=== PATIENT | male | born 1960 | race Caucasian/White ===

== ENCOUNTER 2022-02-08 11:46 | Emergency (ER) | payer OTHER, SELFPAY ==
[2022-02-08 11:48] VITALS: BP 142/84; PULSE 78; RESP 16; TEMP 36.6; O2SAT 98; BMI 21.2
--- NOTE | 2022-02-08 12:08 | EX.ED.DYSGE1 ---
HPI History of Present Illness Chief Complaint: Lower Extremity Injury Informant: patient Narrative Narrative: Patient presents from radiology department secondary to positive DVT study. Patient broke his foot 3 weeks ago while running in the [employer]. He is following with Dr. Noriega. He is nonweightbearing for 6 weeks. Patient states that he was seen yesterday for 3-week follow-up. He mentioned that he had some tightness in his calf. When it is not improved today a DVT study was ordered. This is positive for a clot in the left soleus vein. Patient is still nonweightbearing for the next 3 weeks. Patient denies chest pain or shortness of breath. No prior history of clots. [facility] Medical History High cholesterol Hypertension Home Medications amlodipine 02/08/22 [History Last Taken Unknown] apixaban [Eliquis DVT-PE Treat 30D Start] 5 mg PO BID #74 tab 02/08/22 [Rx Last Taken Unknown] atorvastatin 02/08/22 [History Last Taken Unknown] montelukast mg 02/08/22 [History Last Taken Unknown] Allergy/AdvReac Type Severity Reaction Status Date / Time No Known Allergies Allergy Verified 02/08/22 11:49 Social History Smoking Status: Never smoker ROS ROS ED Constitutional Constitutional ED: Denies chills or fever(s) Eyes Eyes: Denies change in vision ENT ENT ED: Denies sore throat Cardiovascular Cardiovascular: Denies chest pain Respiratory/Chest Respiratory/Chest: Denies cough or dyspnea Gastrointestinal Gastrointestinal: Denies abdominal pain, nausea or vomiting Genitourinary Genitourinary ED: Denies dysuria Musculoskeletal Musculoskeletal: Reports arthralgias; Denies back pain or neck pain Integumentary Denies rash Neurologic Neurologic: Denies headache(s), paresthesias or weakness Allergic/Immunologic Allergic/Immunologic ED: Denies urticaria EXAM Physical Exam Const Vital Signs: 02/08/22 11:48 Temperature 98 F Temperature Source Temporal Pulse Rate 78 Respiratory Rate 16 Blood Pressure 142/84 H Blood Pressure Mean 103 Pulse Ox 98 Oxygen Delivery Method Room Air Positive well nourished and well developed General Appearance ED: well developed HEENT Reports moist mucous membranes Eyes PERRL and EOMs intact bilaterally Neck supple Chest Wall inspection of chest normal and palpation of chest normal Resp normal respiratory effort and clear to auscultation bilaterally Cardio regular rate and regular rhythm GI non-tender Palpation: soft Extremity Extremity Narrative: Left lower extremity in walking boot. Patient able to wiggle toes without difficulty. Good sensation distally. Neuro oriented x3 Sensorium / Orientation: alert Psych mental status grossly normal MDM MDM MDM Narrative Medical decision making narrative: DVT study is reviewed and is significant for an acute deep vein thrombosis in the left soleus vein. Treatment and Re-Evaluation Narrative: Patient be given a coupon for 30 days of Eliquis. I did speak with the patient's primary care physician, Dr. Aquino. Patient is to follow-up in the office for continuation of this medication. Discharge Plan Triage Chief Complaint: Lower Extremity Injury ED Provider: Tete Stevens Dx/Rx/DC Orders Clinical Impression: DVT (deep venous thrombosis) Instructions: ED Deep Vein Thrombosis (DVT) Prescriptions: New Eliquis DVT-PE Treat 30D Start 5 mg (74 tabs) tablets,dose pack 5 mg PO BID Qty: 74 RF: 0 No Action atorvastatin 20 mg tablet RF: 0 amlodipine 5 mg tablet RF: 0 montelukast 10 mg tablet RF: 0 Primary Care Provider: Chucky Aquino Referrals: Chucky Aquino MD [Primary Care Provider] - 1-2 Weeks Disposition Disposition: Home, Self Care
[2022-02-08] MEDS: APIXABAN 5 MG TABLET 10 MG PO (12:23)
== END 2022-02-08 12:31 | disposition home or self-care (01) ==
LOC: ED 12:21
PROVIDERS: Emergency Provider Emergency Medicine; PCP Family Medicine; Visit Provider Emergency Medicine
DX: I82.462 Acute embolism and thrombosis of left calf muscular vein (principal); I10 Essential (primary) hypertension; E78.00 Pure hypercholesterolemia, unspecified; Z79.899 Other long term (current) drug therapy; Z79.01 Long term (current) use of anticoagulants
CPT/HCPCS: 99283

== ENCOUNTER → 2022-02-08 | Outpatient (CLI) | payer OTHER, SELFPAY ==
--- NOTE | 2022-02-08 11:11 | VDLE_ITS ---
Reason For Study: Edema RIGHT LEFT GSV is normal. GSV is normal. CFV is compressible, spontaneous, phasic, CFV is compressible, spontaneous, phasic, competent and demonstrates normal competent, and demonstrates normal augmentation. augmentation. FV is compressible, spontaneous, phasic, FV is compressible, spontaneous, phasic, competent and demonstrates normal competent and demonstrates normal augmentation. augmentation. POP V is compressible, spontaneous, phasic, POP V is compressible, spontaneous, phasic, competent and demonstrates normal competent and demonstrates normal augmentation. augmentation. T/P Trunk is compressible. T/P Trunk is compressible. PTV is compressible. PTV is compressible. RT PerV is compressible. LT PerV is compressible. Procedure Acute deep vein thrombosis is noted in the This is a venous duplex using B-mode, color left SoleusV. flow and spectral Doppler. Exam performed in department. A preliminary report was called and/or faxed to Porsha. Patient taken to ED per Porsha at Leann's office for treatment. VL/Venous Duplex US - Farhad Extrem Interpretation Summary There is no evidence of right lower extremity deep vein thrombosis. Acute deep venous thrombosis left soleus vein Patent and compressible bilateral great saphenous veins Ordering Physician: Tez Noriega Referring Physician: Chucky Aquino Performed By: Naomi Avitia RVT
== END | disposition home or self-care (01) ==
LOC: CVS 11:09
PROVIDERS: PCP Family Medicine; Referring Provider Podiatrist; Visit Provider Podiatrist
DX: R60.0 Localized edema (principal); I82.409 Acute embolism and thrombosis of unspecified deep veins of unspecified lower extremity
CPT/HCPCS: 93970

== ENCOUNTER → 2022-02-26 | Outpatient (CLI) | payer OTHER, SELFPAY ==
--- NOTE | 2022-02-26 12:56 | VDLE_ITS ---
Reason For Study: Pain, swelling Procedure LEFT This is a venous duplex using B-mode, color GSV is normal. flow and spectral Doppler. CFV is compressible, spontaneous, phasic, Exam performed in department. competent, and demonstrates normal A preliminary report was called and/or faxed augmentation. to Leann. FV is compressible, spontaneous, phasic, competent and demonstrates normal augmentation. POP V is compressible, spontaneous, phasic, competent and demonstrates normal augmentation. T/P Trunk is compressible. PTV is compressible. LT PerV is compressible. Soleus vein is partially compressible with minimal flow noted, as compared to 02/08/2022. VL/Venous Duplex US, Unilateral Interpretation Summary Thrombus is visualized in the left soleus vein with minimal flow and partial co mpressibility consistent with deep venous thrombosis. Please refer to the previous examinatio n of February 08, 2022 There is no evidence for proximal progression. Patent and compressible left great saphenous vein Ordering Physician: Tez Noriega Referring Physician: MD Chucky Salmon Performed By: Naomi Avitia RVT
== END | disposition home or self-care (01) ==
LOC: CVS 12:53
PROVIDERS: PCP Family Medicine; Referring Provider Podiatrist; Visit Provider Podiatrist
DX: I82.402 Acute embolism and thrombosis of unspecified deep veins of left lower extremity (principal); M79.89 Other specified soft tissue disorders
CPT/HCPCS: 93971

== ENCOUNTER → 2022-05-09 | Outpatient (CLI) | payer OTHER, SELFPAY ==
--- NOTE | 2022-05-09 10:59 | VDLE_ITS ---
Reason For Study: DVT Procedure LEFT This is a venous duplex using B-mode, color GSV is normal. flow and spectral Doppler. CFV is compressible, spontaneous, phasic, Exam performed in department. competent, and demonstrates normal A preliminary report was called and/or faxed augmentation. to Leann. FV is compressible, spontaneous, phasic, competent and demonstrates normal augmentation. POP V is compressible, spontaneous, phasic, competent and demonstrates normal augmentation. T/P Trunk is compressible. PTV is compressible. LT PerV is compressible. Soleus V is partially compressible with minimal wall thickening noted. Compared to 02/26/22. VL/Venous Duplex US, Unilateral Interpretation Summary Chronic deep venous thrombosis left soleus vein. No evidence for more proximal deep venous thrombosis Patent and compressible left great saphenous vein Improvement noted from the previous examination of February 26, 2022 Ordering Physician: Tez Noriega Referring Physician: Chucky Aquino Performed By: Naomi Avitia RVT
== END | disposition home or self-care (01) ==
LOC: CVS 10:57
PROVIDERS: PCP Family Medicine; Referring Provider Podiatrist; Visit Provider Podiatrist
DX: I82.462 Acute embolism and thrombosis of left calf muscular vein (principal)
CPT/HCPCS: 93971

== ENCOUNTER → 2022-06-20 | Outpatient (CLI) | payer OTHER, SELFPAY ==
--- NOTE | 2022-06-20 13:02 | VDLE_ITS ---
Reason For Study: DVT RIGHT LEFT GSV is normal. GSV is normal. CFV is compressible, spontaneous, phasic, CFV is compressible, spontaneous, phasic, competent and demonstrates normal competent, and demonstrates normal augmentation. augmentation. FV is compressible, spontaneous, phasic, FV is compressible, spontaneous, phasic, competent and demonstrates normal competent and demonstrates normal augmentation. augmentation. POP V is compressible, spontaneous, phasic, POP V is compressible, spontaneous, phasic, competent and demonstrates normal competent and demonstrates normal augmentation. augmentation. T/P Trunk is compressible. T/P Trunk is compressible. PTV is compressible. PTV is compressible. RT PerV is compressible. LT PerV is compressible. Procedure Soleus V is now completely compressible. This is a venous duplex using B-mode, color flow and spectral Doppler. Exam performed in department. The exam was diagnostic. A preliminary report was called and/or faxed to Dr. Noriega. VL/Venous Duplex US - Farhad Extrem Interpretation Summary No evidence for acute deep venous thrombosis bilateral lower extremities with p atent and compressible bilateral great saphenous veins. Left soleus vein flow has resumed to normal Ordering Physician: Tez Noriega Performed By: Wing Sun RVT
== END | disposition home or self-care (01) ==
LOC: CVS 13:01
PROVIDERS: PCP Family Medicine; Referring Provider Podiatrist; Visit Provider Podiatrist
DX: I82.409 Acute embolism and thrombosis of unspecified deep veins of unspecified lower extremity (principal)
CPT/HCPCS: 93970

== ENCOUNTER → 2024-02-03 | Outpatient (CLI) | payer OTHER, SELFPAY ==
[2024-02-05 12:10] LABS: PSA, Free % 7.8 % (.)
== END | disposition home or self-care (01) ==
LOC: LAB 15:48
PROVIDERS: PCP Family Medicine; Referring Provider Nurse Practitioner; Visit Provider Nurse Practitioner
DX: R97.20 Elevated prostate specific antigen [PSA] (principal)
CPT/HCPCS: 36415; 84153; 84154

== ENCOUNTER → 2024-02-13 | Outpatient (CLI) | payer OTHER, SELFPAY ==
--- NOTE | 2024-02-13 13:28 | MRI_ITS ---
STUDY: MR PROSTATE GLAND/ PELVIS WITH T WITHOUT CONTRAST REASON FOR EXAM: Male, 64 years old. ELEVATED PSA TECHNIQUE: Standardized fat and water weighted pulse sequences were obtained in all 3 orthogonal planes, pre-and post contrast administration. IV 15 cc clarisacn was administered for the contrast portion of the examination. COMPARISON: None. FINDINGS: Prostate gland volume/size: Mildly to moderately enlarged measuring 6.09 x 5.3 x 5.06 cm Anterior fibromuscular stroma: Normal Peripheral zone: 1.42 cm low signal enhancing irregular nodule in the medial aspect of the right peripheral zone which also demonstrates bright diffusion weighted and dark ADC map signal which is indicative of a malignant neoplasm. Normal remaining aspects of the right peripheral zone. Ovoid 1.66 cm low signal enhancing nodule in the superior and medial aspect of the left peripheral zone also demonstrates abnormal diffusion weighted signal and characteristics of a malignant neoplasm. Central zone: Diffusely heterogeneous and nodular most likely due to prostatic hyperplasia Transitional zone: Diffusely heterogeneous and nodular most likely due to prostatic hyperplasia. Focus of nodular hyperplasia project in the posterior superior aspect of the transitional zone in the midline herniated into the base of the bladder. Prostate capsule: Intact Seminal vesicles: Normal Pelvic sidewall lymphadenopathy: None demonstrated Bony structures: No marrow edema or lytic or blastic lesions or abnormal enhancement of the bony structures demonstrated on the current study. Normal urinary bladder. Normal visualized small intestine. There are multiple colonic diverticula of the sigmoid colon consistent with chronic diverticulosis. There is no pelvic fluid. There is no pelvic mass lesion or lymphadenopathy. Normal visualized pelvic arteries. Normal osseous structures. Normal abdominal wall. MRI/Pelvis W/WO Contrast IMPRESSION: 1. Peripheral zone: 1.42 cm low signal enhancing irregular nodule in the medial aspect of the right peripheral zone which also demonstrates bright diffusion weighted and dark ADC map signal which is indicative of a malignant neoplasm. Normal remaining aspects of the right peripheral zone. Ovoid 1.66 cm low signal enhancing nodule in the superior and medial aspect of the left peripheral zone also demonstrates abnormal diffusion weighted signal and characteristics of a malignant neoplasm. 2. PI-RADS 4: high (clinically significant cancer is likely to be present) Reference information: Normal prostate tissue Benign prostatic hypertrophy cancer/tumor - low signal peripheral , transitional, and central zones malignancy appears as bright on DWI and low signal on ADC map Prostate imaging-reporting and data system (PI-RADS) PI-RADS 1: very low (clinically significant cancer is highly unlikely to be present) PI-RADS 2: low (clinically significant cancer is unlikely to be present) PI-RADS 3: intermediate (the presence of clinically significant cancer is equivocal) PI-RADS 4: high (clinically significant cancer is likely to be present) PI-RADS 5: very high (clinically significant cancer is highly likely to be present) PI-RADS X: component of exam technically inadequate or not performed Prostate malignancy distribution: Peripheral zone: 70-80% Transitional zone: 10-20% Central zone: 5% or less Electronically Signed: Leobardo Mccoy MD at 8:57 EDT ,
[2024-02-13 14:19] LABS: CREATININE FINGERSTICK < 1.0 mg/dL (0.70-1.30); EGFR FINGERSTICK > 60.0000 mL/min (>60)
== END | disposition home or self-care (01) ==
LOC: MRI 13:23
PROVIDERS: PCP Family Medicine; Referring Provider Urology; Visit Provider Urology
DX: R97.20 Elevated prostate specific antigen [PSA] (principal)
CPT/HCPCS: 72197; A9575

== ENCOUNTER 2024-03-17 09:26 | Day surgery (SDC) | payer OTHER, SELFPAY ==
[2024-03-17] VITALS (9 sets, daily range): BP systolic 114–124; BP diastolic 69–86; PULSE 56–65; RESP 16; TEMP 36.6–36.9; O2SAT 97–100; BMI 21.7
--- NOTE | 2024-03-17 | IMM_PTH ---
PATIENT: HAL MOORE LOC: [facility] [place] U#:[id number] AGE/SX: 64/M ROOM: RE03/17/[address]: Dr. Vishnu Monae MD : 1960 BED: DIS: 03/17/2024 SPEC #: [id number] RECD: 03/18/24 11:58 STATUS: SOUJolene REQ #: [id number] ADRI: 03/17/24 00:[address]: Vishnu Monae DEPT: IMMUNOHISTOCHEMISTRY RECD BY: Hilton Rubalcava ENTERED: 03/18/24 11:58 SP TYPE: IMMUNO OTHR DR: Dr. Chucky Aquino MD Tissues: B - PROSTATE LEFT Procedures: 34BE12 (add) P40 (initial) PHYSICIAN & INSTITUTION [place] [id number] SPECIMEN INFORMATION: Tissue Source: B- Prostate left mid Clinical Info: Elevated PSA Specimen Number: [id number] CPT code: 96077,01272 METHODOLOGY: Deparaffinized sections of prefer/formalin-fixed tissue or PAP/DQ stained slides are incubated with monoclonal/polyclonal antibodies/oligonucleotide probes. Localization is made via biotin free immunoperoxidase method. Appropriate controls are performed and reacted as expected. Results on target cell population are indicated in the following table: RESULTS: ANTIBODY / CLONE RESULT Block B P40 (BC28) positive 34BE12 (34BE12) positive These tests were developed and their performance characteristics determined by [facility]. They may not have been cleared or approved by the U.S. Food and Drug Administration. The FDA has determined that such clearance or approval is not necessary. The above immunohistochemical/dualISH markers are ordered and reviewed by the Pathologist. INTERPRETATION: B. Prostate, left mid, biopsy: No evidence of malignancy. AM/ 03/19/2024
[2024-03-17] MEDS: Lactated Ringers 1,000 ML 15 ML IV (10:17)
--- NOTE | 2024-03-17 11:00 | US_ITS ---
STUDY: ULTRASOUND-GUIDED PROSTATE BIOPSY. REASON FOR EXAM: Male, 64 years old. Elevated PSA. TECHNIQUE: Under direct sonographic guidance, the urologist performed multiple core biopsies of the prostate utilizing an 18-gauge core biopsy needle. COMPARISON: None. US/Prostate Biopsy IMPRESSION: Ultrasound-guided prostate biopsy. Electronically Signed: Madan Lewis MD at 8:10 EDT ,
--- NOTE | 2024-03-17 11:15 | PCM.PRE.AN2 ---
ASA Classification* ASA Classification ASA Classification: 2 Assessment & Plan Anesthesia* Anesthesia Assessment Anesthesia Assessment: Discussed sedation and/or anesthesia options, risks, benefits, and alternatives with patient/parents/legal guardian/POA. Questions invited. The patient/parents/legal guardian/POA seems to understand and agrees to proceed with anesthesia plan. Reviewed the physical assessment, medical history, allergy history and patient home medications list prior to surgery/procedure/anesthetic and documented any changes. Performed airway and anesthesia risk assessments. Anesthesia Type Anesthesia Type: MAC (General as back up) History Source History Obtained from:: Patient and Chart Pre-Assessment Diagnosis/Proposed Procedure Planned Operative Procedure(s): Cysto,Transurethera Prostate,Bx US Guided Anesthesia History Anesthesia History - client application support specialist: Anesthesia History - client application support specialist Hx Hospitalization No 03/03/24 13:23 Any Problems With Anesthesia No 03/03/24 13:23 Cholinesterase deficiency No 03/03/24 13:23 You/Your Family Experience No 03/03/24 13:23 fever (hyperthermia) with Relationship Recent Exposure to Contagious No 03/17/24 09:55 Disease Does patient have nerve No 03/03/24 13:23 stimulator Patient instructed to have device shut off --Does patient have Pacemaker No 03/17/24 09:55 or ICD? When Was Last Pacemaker Check QUESTION #4 FULL TEXT: You/Your Family Experience fever (hyperthermia) with Anesthesia Last Oral Intake Last Oral intake: Last Oral Intake NPO since 00:00 03/17/24 09:55 Meds taken in AM with sips of Yes 03/17/24 09:55 water? Meds patient instructed to take am of surgery PONV PONV - client application support specialist: PONV - client application support specialist Female No 03/03/24 13:23 HX of Motion Sickness No 03/03/24 13:23 HX of N/V After Surgery No 03/03/24 13:23 Non-Smoker Yes 03/03/24 13:23 Duration of Surgery greater Yes 03/03/24 13:23 than 60 minutes Number of Risk Factors 2 03/03/24 13:23 PONV Score Moderate Risk 03/03/24 13:23 Height & Weight Height & Weight: Anesthesia: Height & Weight Height 6 ft 2 in 03/17/24 09:55 Weight: 77 kg 03/17/24 09:55 Body Mass Index (BMI) 21.7 03/17/24 09:55 Respiratory Assessment Respiratory Assessment - client application support specialist: Respiratory Tract Infection Hx - client application support specialist Hx Respiratory Tract Infection Yes: RECENT COLD FINISHED 03/03/24 13:23 ANTIBIOTICS 03/02/24 STOP Sleep Apnea STOP Sleep Apnea - client application support specialist: STOP Sleep Apnea - client application support specialist Hx Hypertension Yes: CONTROLLED ON MED 03/03/24 13:23 Hx Sleep Apnea No 03/03/24 13:23 CPAP BIPAP Do you snore loudly (louder No 03/03/24 13:23 than talking or can be heard Do you often feel tired/ No 03/03/24 13:23 fatigued/ sleepy during daytime? Has anyone observed you stop No 03/03/24 13:23 breathing during sleep? STOP Results Negative 03/03/24 13:23 QUESTION #5 FULL TEXT : Do you snore loudly (louder than talking or can be heard through closed doors)? Tobacco Use History Tobacco Use History - client application support specialist: Tobacco Use History - client application support specialist Tobacco Use Smoking Status Never smoker 03/03/24 13:23 Hx Tobacco Use No 03/03/24 13:23 Years Smoking Packs Smoked per Day Smoking Cessation Date was within the last 15 years Hx Smoking Cessation Date Hx Smoking Cessation Counseling Hematologic Medial History Hematologic Hx - client application support specialist: Hematologic Medical Hx - nurse charge rn Hx of Blood Transfusion No 03/03/24 13:23 Hx of Transfusion in last 3 No 03/03/24 13:23 Months Date of Last Transfusion (if within last 3 months) Ever experience any problems No 03/03/24 13:23 with transfusion(s)? Specify any problems Hx of Preganancy in last 3 N/A 03/03/24 13:23 Months Nurse Filling Out Transfusion VCHRISTIN 03/03/24 13:23 & Questions: Date: 03/03/24 03/03/24 13:23 Time: 13:25 03/03/24 13:23 Patient unable to answer at this time (ie. confused, unrespo /Reproduction History /Reproductive History - client application support specialist: /Reproductive Hx- client application support specialist Hx Now Gestational Age (in weeks): EDC: Hx Hx Para Hx Section SAB Active Medications Active Medications: Current Medications Generic Name Dose Route Start Last Admin Trade Name Freq PRN Reason Stop Dose Admin Cefazolin Sodium 2 gm/ Sodium 110 mls @ 150 mls/hr 03/17/24 11:30 Chloride IV 03/17/24 12:13 PREOP ONE Lactated Ringer's 1,000 mls @ 15 mls/hr 03/17/24 10:15 03/17/24 10:17 IV 15 mls/hr .Q48H JUN Administration Anesthesia Focused Assessment* Temperature: 97.9 F Pulse Rate: 60 Blood Pressure: 114/81 Respiratory Rate: 16 Pulse Ox: 99 Airway Assessment Mouth opens: >3 cm Mallampati Score: II Teeth Condition: Caps/Crowns (Crowns are all tight.) Neck Range of motion (ROM): Full ROM Pertinent Findings Stress Test Pertinent Findings:: Stress test performed September 08, 2020 was negative for ischemia. ejection fraction is 58% Focused Labs Anesthesia Preop lab: CBC CHEMISTRY COAG Review of Systems (Anesthesia) ROS Narrative System reviewed and no additional complaints, except as documented. [facility] Medical History Wears glasses Thyroid disease DVT (deep venous thrombosis) History of echocardiogram History of stress test High cholesterol Hypertension Home Medications ?Medication ?Instructions ?Recorded ?Last Taken ?Type amlodipine 5 mg tablet 5 mg PO QHS 02/08/22 03/16/24 23:00 History atorvastatin 20 mg tablet 20 mg PO QHS 02/08/22 03/16/24 23:00 History montelukast 10 mg tablet 10 mg PO DAILY 02/08/22 Unknown History levothyroxine 75 mcg tablet 75 mcg PO DAILY 03/03/24 03/17/24 08:30 History tadalafil 2.5 mg tablet 2.5 mg PO QHS 03/03/24 03/16/24 23:00 History hydroxyzine HCl 50 mg tablet 50 mg PO Q6H PRN PRN anxiety 03/17/24 03/16/24 23:00 History Allergy/AdvReac Type Severity Reaction Status Date / Time No Known Allergies Allergy Verified 03/17/24 09:53 Surgical History Hx laparoscopic cholecystectomy Social History Smoking Status: Never smoker
--- NOTE | 2024-03-17 11:27 | PCM.HP.STD ---
HPI - General General Date of Service: 03/17/24 Chief Complaint: Elevated PSA HPI Narrative HAL MOORE, is a 64 M who presents ultrasound-guided prostate biopsy [facility] Medical History Wears glasses Thyroid disease DVT (deep venous thrombosis) History of echocardiogram History of stress test High cholesterol Hypertension Home Medications ?Medication ?Instructions ?Recorded ?Last Taken ?Type amlodipine 5 mg tablet 5 mg PO QHS 02/08/22 03/16/24 23:00 History atorvastatin 20 mg tablet 20 mg PO QHS 02/08/22 03/16/24 23:00 History montelukast 10 mg tablet 10 mg PO DAILY 02/08/22 Unknown History levothyroxine 75 mcg tablet 75 mcg PO DAILY 03/03/24 03/17/24 08:30 History tadalafil 2.5 mg tablet 2.5 mg PO QHS 03/03/24 03/16/24 23:00 History hydroxyzine HCl 50 mg tablet 50 mg PO Q6H PRN PRN anxiety 03/17/24 03/16/24 23:00 History Allergy/AdvReac Type Severity Reaction Status Date / Time No Known Allergies Allergy Verified 03/17/24 09:53 Surgical History Hx laparoscopic cholecystectomy Social History Smoking Status: Never smoker Vital Signs Vital Signs Vital Signs: 03/17/24 09:55 03/17/24 09:55 Temperature 97.9 F Temperature Source Temporal Pulse Rate 60 Respiratory Rate 16 Respiratory Pattern Normal Blood Pressure 114/81 H Blood Pressure Mean 92 Blood Pressure Source Monitor Blood Pressure Position Semi-Fowlers Blood Pressure Location Left Arm Pulse Ox 99 Oxygen Delivery Method Room Air Weight Weight: 77 kg Body Mass Index (BMI) 21.7
--- NOTE | 2024-03-17 11:30 | PROSBIL_PTH ---
PATIENT: HAL MO[place] [facility] [id number] AGE/SX: 64/M ROOM: RE03/17/[address]: Dr. Vishnu Monae MD : 1960 BED: DIS: 03/17/2024 SPEC #: [id number] RECD: 03/17/24 12:59 STATUS: QUINTEN REYusef #: [id number] ADRI: 03/17/24 11:[address]: Vishnu Monae DEPT: SURGICAL PATHOLOGY RECD BY: Seth Bunch ENTERED: 03/17/24 13:52 SP TYPE: PROST BX LAUREEN DR: Dr. Chucky Aquino MD Tissues: A - PROSTATE RIGHT B - PROSTATE RIGHT C - PROSTATE RIGHT D - PROSTATE LEFT E - PROSTATE LEFT F - PROSTATE LEFT Procedures: PROSTATE BX HEADER OPERATION: Transurethral resection prostate biopsy, US guided PRE-OP DIAGNOSIS: Elevated PSA TISSUE SUBMITTED: A- Left base, B- Left mid, C- Left apex, D- Right base. E- Right mid, F- Right apex MICROSCOPIC DIAGNOSIS A. Left prostate, base, core biopsy: Focal glandular atrophy. B. Left prostate, mid, core biopsy: Chronic prostatitis. Focal glandular hyperplasia and benign focal basal cell hyperplasia. See comment. C. Left prostate, apex, core biopsy: Focal glandular atrophy. D. Right prostate, base, core biopsy: Focal chronic inflammation. E. Right prostate, mid, core biopsy: Mild chronic inflammation. F. Right prostate, apex, core biopsy: Minimal chronic inflammation. AM/ 03/18/2024 COMMENT B. Immunohistochemistry ([id number]) supports the above diagnosis. MICROSCOPIC DESCRIPTION Slides are reviewed. GROSS DESCRIPTION A - Received is one container designated prostate, left base. The specimen consists of two elongated fragments of light alcaraz-white soft tissue each measuring 1.5 cm in length and 0.1 cm in diameter. The specimen is totally submitted in one cassette. B - Received is one container designated prostate, left mid. The specimen consists of five elongated fragments of light alcaraz-white soft tissue each measuring 1.5 cm in length and 0.1 cm in diameter. The specimen is totally submitted in one cassette. C - Received is one container designated prostate, left apex. The specimen consists of two elongated fragments of light alcaraz-white soft tissue each measuring 1.5 cm in length and 0.1 cm in diameter. The specimen is totally submitted in one cassette. D - Received is one container designated prostate, right base. The specimen consists of two elongated fragments of light alcaraz-white soft tissue each measuring 1.5 cm in length and 0.1 cm in diameter. The specimen is totally submitted in one cassette. E - Received is one container designated prostate, right mid. The specimen consists of two elongated fragments of light alcaraz-white soft tissue each measuring 1.5 cm in length and 0.1 cm in diameter. The specimen is totally submitted in one cassette. F - Received is one container designated prostate, right apex. The specimen consists of two elongated fragments of light alcaraz-white soft tissue each measuring 1.5 cm in length and 0.1 cm in diameter. The specimen is totally submitted in one cassette. Anoop 03/17/2024 TC:3 CPT: 53521 x6
[2024-03-17] MEDS: Cefazolin 2 GM in 0.9% Normal Saline (100mL Bag) 100 ML IV (11:49)
--- NOTE | 2024-03-17 12:11 | PCM.DC ---
Discharge Instructions Diet Discharge Diet: No restrictions Activity Discharge Activity: Return to Normal Activity and May Not Drive (while taking narcotic pain medications.) Dressing / Incision Call your doctor if you observe: Fever of 101 or Higher Follow Up Care Please Follow Up With: Vishnu Monae MD When: Call [phone] for an appointment Test Results: Test results from this visit will be discussed in further detail at your follow-up appointment, if applicable. Discharge Plan Admission Primary Reason for Your Visit: prostate biopsy Attending Provider: Vishnu Monae Primary Care Provider: Chucky Aquino Instructions Print Language: [place] Discharge Orders/Prescriptions Prescriptions: Continued atorvastatin 20 mg tablet 20 mg PO QHS Patient Comments: TAKE 1 TABLET BY MOUTH ONCE DAILY IN THE EVENING amlodipine 5 mg tablet 5 mg PO QHS Patient Comments: TAKE 1 TABLET BY MOUTH ONCE DAILY montelukast 10 mg tablet 10 mg PO DAILY Patient Comments: TAKE 1 TABLET BY MOUTH ONCE DAILY levothyroxine 75 mcg tablet 75 mcg PO DAILY tadalafil 2.5 mg tablet 2.5 mg PO QHS hydroxyzine HCl 50 mg tablet 50 mg PO Q6H PRN PRN (Reason: anxiety) Referrals / Follow Up: Vishnu Monae MD [Med Staff - Active Staff] - Chucky Aquino MD [Primary Care Provider] - Disposition Disposition (needs filled in before D/C Order can be placed): Home, Self Care
--- NOTE | 2024-03-17 12:11 | PCM.OPRPT ---
Report of Operation Date of Procedure: 03/17/24 Pre-Operative Diagnosis: Elevated PSA Post-Operative Diagnosis: Same Surgery/Procedure Performed:: Transrectal, ultrasound-guided biopsy of the prostate Description of Surgical Findings:: Patient was taken back to the operating room at this with induction of general anesthesia he was placed in dorsolithotomy position with the legs in stirrups. The he underwent MAC local sedation we then used a transrectal ultrasound and went into the rectum I did ultrasonography of the prostate prostate was measured about 60 g in size identified that the right peripheral zone was larger than the left peripheral zone no clear hypoechoic lesions seen he did have an MRI report was read as have abnormal lesions on both the left and right peripheral zones so that we did sequential biopsies of the right side in the peripheral zone started the right peripheral zone base right peripheral zone mid and right peripheral zone apex multiple biopsies were taken any lesion seen were biopsied. We then went to the left side and we did a left peripheral zone base of the peripheral zone mid in the peripheral zone apex biopsies were taken. After all the cores were placed on the appropriate cuff to locate the the anatomy and the location of biopsy then patient anesthetic was reversed perineal and rectal pressure was placed. Patient is taken back to the PACU in stable condition Surgeon: Vishnu Monae Type of Anesthesia: MAC and Topical Anesth Drains: none Admit VTE Documentation VTE Present on Admission: No VTE Mechan Device Prophylaxis: SCD's VTE Pharm Prophylaxis ordered?: No
--- NOTE | 2024-03-17 12:22 | PCM.POST.ANE ---
Anesthesia: Postop Eval I Current Vital Signs Temperature: 98 F Pulse Rate: 65 Blood Pressure: 120/82 Respiratory Rate: 16 Pulse Ox: 97 Oxygen Delivery Method: Room Air Assessment Airway patent: Yes Spontaneous unlabored respirations: Yes Mental status: Awake and Calm nausea: No Vomiting: No Anesthesia Complication: No Fluid Hydration Crystalloid volume administer (ml): 200 Total IV fluid infused: 200 Progress Note Anesthesia document: Postop Eval 1 completed: Yes
--- NOTE | 2024-03-17 14:38 | POSTOPAN2_ITS ---
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 Spontaneous unlabored Yes 03/17/24 12:55 JAVA ENTERPRISE ARCHITECT.[email or web address] respirations Mental status Awake,Calm 03/17/24 12:55 JAVA ENTERPRISE ARCHITECT.[email or web address] nausea No 03/17/24 12:55 JAVA ENTERPRISE ARCHITECT.[email or web address] Vomiting No 03/17/24 12:55 JAVA ENTERPRISE ARCHITECT.[email or web address] Anesthesia Postop Eval I: Fluid Summary Crystalloid volume administer 200 03/17/24 12:55 JAVA ENTERPRISE ARCHITECT.GDOTT (ml) Colloids volume administered ( ml) Blood Product volume administered (ml) Total IV fluid infused 200 03/17/24 12:55 JAVA ENTERPRISE ARCHITECT.[email or web address] Anesthesia Postop Eval I: Summary Notes Anesthesia Complication No 03/17/24 12:55 JAVA ENTERPRISE ARCHITECT.[email or web address] Anesthesia Complication Comment: Post-operative progress note Anesthesia: Postop Eval II Evaluation Mental status: Awake and Calm Pain Level: 1 nausea: No Vomiting: No Complications Anesthesia Complication: No
--- NOTE | 2024-03-17 14:38 | PCM.POSTANE2 ---
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 Spontaneous unlabored Yes 03/17/24 12:55 PORTAINER OPERATOR.[email or web address] respirations Mental status Awake,Calm 03/17/24 12:55 PORTAINER [email or web address].[email or web address] nausea No 03/17/24 12:55 PORTAINER OPERATOR.[email or web address] Vomiting No 03/17/24 12:55 PORTAINER OPERATOR.[email or web address] Anesthesia Postop Eval I: Fluid Summary Crystalloid volume administer 200 03/17/24 12:55 PORTAINER OPERATOR.GDOTT (ml) Colloids volume administered ( ml) Blood Product volume administered (ml) Total IV fluid infused 200 03/17/24 12:55 PORTAINER OPERATOR.[email or web address] Anesthesia Postop Eval I: Summary Notes Anesthesia Complication No 03/17/24 12:55 PORTAINER OPERATOR.[email or web address] Anesthesia Complication Comment: Post-operative progress note Anesthesia: Postop Eval II Evaluation Mental status: Awake and Calm Pain Level: 1 nausea: No Vomiting: No Complications Anesthesia Complication: No
== END 2024-03-17 13:27 | disposition home or self-care (01) ==
LOC: SDC 09:27 → AC 09:27
PROVIDERS: PCP Family Medicine; Referring Provider Urology; Visit Provider Urology
PROC: 0VB08ZX Excision of Prostate, Via Natural or Artificial Opening Endoscopic, Diagnostic (ICD-10-PCS; CPT 52000; principal; 2024-03-17 11:15)
DX: R97.20 Elevated prostate specific antigen [PSA] (principal); I10 Essential (primary) hypertension; E78.00 Pure hypercholesterolemia, unspecified; Z86.718 Personal history of other venous thrombosis and embolism; Z90.49 Acquired absence of other specified parts of digestive tract; E07.9 Disorder of thyroid, unspecified; N41.1 Chronic prostatitis
CPT/HCPCS: 00902; 55700; 76942; 88305; 88341; 88342; J7120; G0416; J2405

== ENCOUNTER → 2024-09-28 | Outpatient (CLI) | payer OTHER, SELFPAY ==
[2024-09-28 17:30] LABS: PSA,Total- Diagnostic 5.93 ng/mL (0.0-4.0)
== END | disposition home or self-care (01) ==
LOC: LAB 16:46
PROVIDERS: PCP Family Medicine; Referring Provider Nurse Practitioner; Visit Provider Nurse Practitioner
DX: R97.20 Elevated prostate specific antigen [PSA] (principal)
CPT/HCPCS: 36415; 84153